=== PATIENT | male | born 1945 | race Caucasian/White ===

== ENCOUNTER → 2016-03-20 | Outpatient (CLI) | payer MEDICARE, OTHER | LOC: GMAM 16:44 | PROVIDERS: ATTEND Family Medicine | DX: M79.641 Pain in right hand (principal) ==

== ENCOUNTER → 2017-02-05 | Outpatient (CLI) | payer MEDICARE, OTHER | END | disposition home or self-care (01) | LOC: GMAM 14:34 | PROVIDERS: ATTEND Family Medicine | DX: Z85.46 Personal history of malignant neoplasm of prostate (principal) ==

== ENCOUNTER → 2017-11-18 | Outpatient (CLI) | payer MEDICARE, OTHER | LOC: GMAM 11:14 | PROVIDERS: ATTEND Family Medicine | DX: R53.83 Other fatigue (principal); Z85.46 Personal history of malignant neoplasm of prostate ==

== ENCOUNTER → 2018-03-16 | Outpatient (CLI) | payer MEDICARE, OTHER ==
--- NOTE | 2018-03-16 08:30 | RAD ---
EXAM DESCRIPTION: Shoulder,Right 2 or More Views CLINICAL HISTORY: 72 years Male, SHOULDER PAIN TECHNIQUE: 4 views of the right shoulder obtained. COMPARISON: None available. FINDINGS: The visualized bones demonstrate mild osteopenia. No acute fracture or dislocation. The glenohumeral joint is intact with moderate to severe osteoarthritic changes, with joint space narrowing and osteophytosis along the posterior inferior aspect of the humeral head. The AC joint appears unremarkable. The overlying soft tissues appear grossly unremarkable. IMPRESSION: 1. No acute fracture or dislocation. 2. Moderate to severe osteoarthritic changes of the glenohumeral joint with severe joint space narrowing and large osteophytosis. Electronically signed by: Abhishek Chery MD 03/16/2018 8:29 AM [facility]
--- NOTE | 2018-03-16 08:34 | RAD ---
EXAM DESCRIPTION: Shoulder,Left 2 or More Views CLINICAL HISTORY: 72 years Male, SHOULDER PAIN TECHNIQUE: 4 views of the left shoulder. COMPARISON: None available. FINDINGS: The visualized bones demonstrate mild osteopenia. No acute fracture or dislocation. The glenohumeral joint is intact. Mild to moderate degenerative changes of the glenohumeral joint noted with joint space narrowing and small osteophytosis. Mild degenerative changes are also noted at the AC joint. The overlying soft tissues appear grossly unremarkable. IMPRESSION: 1. No acute fracture or dislocation. 2. [id number] osteoarthritic changes of the glenohumeral joint with joint space narrowing and small osteophytosis. Note: Bilateral osteoarthritic changes of the glenohumeral joints right worse than left. Electronically signed by: Abhishek Chery MD 03/16/2018 8:32 AM [facility]
== END ==
LOC: RAD 07:53
PROVIDERS: ATTEND Orthopaedic Surgery
DX: M25.511 Pain in right shoulder (principal); M25.512 Pain in left shoulder; M19.011 Primary osteoarthritis, right shoulder; M19.012 Primary osteoarthritis, left shoulder

== ENCOUNTER → 2018-04-30 | Outpatient (CLI) | payer MEDICARE, OTHER | LOC: GMAM 14:22 | PROVIDERS: ATTEND Family Medicine | DX: G44.209 Tension-type headache, unspecified, not intractable (principal) ==

== ENCOUNTER → 2018-05-04 | Outpatient (CLI) | payer MEDICARE, OTHER ==
--- NOTE | 2018-05-04 15:48 | MRI ---
EXAM DESCRIPTION: Brain w/o Contrast: MRI. CLINICAL HISTORY: G44.209.Tension-type headache, unspecified, not intractable COMPARISON: MRI scan of the brain 01/11/2016. TECHNIQUE: Multiplanar, high-field MRI unit, multiple diffusion sequences, multiple conventional sequences without contrast. FINDINGS: Minimally hyperintense FLAIR and T2-weighted signal in the periventricular white matter abutting the frontal horns of the lateral ventricles more on the right than the left. Also in the bilateral centrum semiovale at the level of the liver ventricles also.. No hemorrhage, no cerebral edema, no mass-effect. No diffusion restriction. Probable cyst in the lower mid left basal ganglia. Normal signal in the right. Normal signal in the brainstem and left cerebellar hemispheres. No hemorrhage, no cerebral edema, no mass-effect. No diffusion restriction. Focal bright signal in the B 1000 diffusion sequence on the lateral aspect of the mid right cerebellar hemisphere. This region is low signal on FLAIR and T1 sequences and the ADC map. This is stable since the prior study. Concordance of the diffusion and non-diffusion sequences in other regions besides the right cerebral hemisphere with no diffusion restriction. Cortical sulci, ventricles, and other CSF spaces, and the subdural spaces are normally configured for patients age. No effacement or displacement. No midline shift. No extra-axial hemorrhage. Normal flow signal void in the major vessels of the [place], and the venous sinuses. IACs are symmetric bilaterally. No fluid in the bilateral mastoid air cells. No mass effect in the bilateral cerebellopontine angles. Pituitary gland occupies most of the sella. Base of the cerebellar tonsils is above the foramen magnum. No significant abnormalities in the. The bony calvarium is intact. IMPRESSION: 1. Changes in the periventricular white matter abutting the frontal horns of the lateral ventricles and in the bilateral centrum semiovale most likely related to cerebral microvascular disease and aging, with no significant change from the prior study in 2016. 2. Diffusion abnormality in the lateral right cerebellar hemisphere is also stable since 2016 with no evidence of significant acute or subacute infarction or diffusion restriction in the brain. Electronically signed by: Rush Shaw MD 05/04/2018 3:45 PM [facility]
== END ==
LOC: MRI 08:00
PROVIDERS: ATTEND Family Medicine
DX: G44.209 Tension-type headache, unspecified, not intractable (principal)

== ENCOUNTER → 2019-02-02 | Outpatient (CLI) | payer MEDICARE, OTHER | LOC: GMAM 10:56 | PROVIDERS: ATTEND Family Medicine | DX: Z85.46 Personal history of malignant neoplasm of prostate (principal) ==

== ENCOUNTER → 2019-07-13 | Outpatient (CLI) | payer MEDICARE, OTHER | LOC: GMAM 10:38 | PROVIDERS: ATTEND Family Medicine | DX: C61 Malignant neoplasm of prostate (principal); E78.2 Mixed hyperlipidemia ==